=== PATIENT | female | born 1965 | race Caucasian/White ===

== ENCOUNTER 2017-10-16 21:38 | Emergency (ER) | payer OTHER ==
[~2017-10-16] VITALS: Ht 160 cm; Wt 108.9 kg
[2017-10-16 21:40] VITALS: BP 120/79
--- NOTE | 2017-10-16 21:43 | NUR ---
TO BED # 5 AMBULATORY, REPORT GIVEN TO THAI JEAN
--- NOTE | 2017-10-16 21:51 | NUR ---
52/F CAME IN ED, C/O LARGE AMOUNT VAGINAL BLEEDING WITHOUT CLOTS, X1 HR. PT DENIES VAGINAL OR ANY PAIN, DISCHARGE OR ITCHING. HX HYSTERECTOMY (2014). RX HCTZ FOR BLE SWELLING. NKA PT DENIES N/V/D; PT DENIES ANY FEVER, CP, SOB, OR COUGH AT THIS TIME; SKIN IS INTACT, PINK/WARM/DRY; AAOX4, PERRL, WITH EVEN AND STEADY GAIT; LUNGS CLEAR BL, BREATHING UNLABORED; HR EVEN AND REGULAR, BL PERIPHERAL PULSES PRESENT; BS ACTIVE X4, NO TENDERNESS TO PALPATION; PT STATES 0/10 PAIN AT THIS TIME; VSS; PATIENT POSITIONED FOR COMFORT; HOB ELEVATED; BEDRAILS UP X2; BED DOWN. ER MADE AWARE
--- NOTE | 2017-10-16 22:01 | NUR ---
Dr. Oconnor evaluating patient at bedside.
--- NOTE | 2017-10-16 22:09 | NUR ---
CHAPPERONED DR. LINDER FOR RECTAL EXAM
[2017-10-16 22:14] VITALS: BP 138/80
--- NOTE | 2017-10-16 22:15 | NUR ---
Patient discharged with v/s stable. Written and verbal after care instructions given and explained. Patient alert, oriented and verbalized understanding of instructions. Ambulatory with steady gait. All questions addressed prior to discharge. ID band removed. Patient advised to follow up with PMD. Rx of COLACE given. Patient educated on indication of medication including possible reaction and side effects. Opportunity to ask questions provided and answered.
== END 2017-10-16 22:15 | disposition home or self-care (01) ==
LOC: MED 21:38
DX: K64.9 Unspecified hemorrhoids (principal); J45.909 Unspecified asthma, uncomplicated; Z90.710 Acquired absence of both cervix and uterus; Z90.49 Acquired absence of other specified parts of digestive tract; F17.200 Nicotine dependence, unspecified, uncomplicated
CPT/HCPCS: 81002; 81025; 99283

== ENCOUNTER 2018-06-07 23:08 | Emergency (ER) | payer OTHER ==
[~2018-06-07] VITALS: Ht 160 cm; Wt 105.8 kg
[2018-06-07 23:12] VITALS: BP 141/77
--- NOTE | 2018-06-07 23:16 | NUR ---
TO ED 02 WITH STEADY GAIT
--- NOTE | 2018-06-07 23:20 | NUR ---
PT BIB FRIEND C/O RIGHT EAR PAIN. PT STATES SHE WAS SEEN AT AN URGENT CARE 5 DAYS AGO AND WAS PRESCRIBED ANTIBIOTICS, PT STATES TO BE UP TO DATE ON RX TX, BUT SYMPTOMS HAVE WORSEN AND NOW HAS A BUMP ON THE BACK OF HER EAR. PT STATES 9/10 PAIN, PT DESCRIBED PRESSURE, NON RADIATING. --FACIAL SWELLING TO LOWER RIGHT SIDE OF FACE; SMILE SYMETRICAL, REDNESS W/ MILD SWELLING BEHIND RIGHT EAR; NO DISCHARGE NOTED AT THIS TIME. CLEAR SPEECH. --DENIES N/V/D, FEVER, CHILL, CP, SOB OR LOC. AAOX4. SKIN WARM, DRY AND INTACT. LUNG SOUND CLEAR BL. BOWEL SOUNDS ACTIVE X4 QUAD. PMH: UTERINE CANCER (REMISSION), ASTHMA RX: DENIES
[2018-06-07 23:48] VITALS: BP 138/77
== END 2018-06-07 23:48 | disposition home or self-care (01) ==
LOC: MED 23:08
DX: H66.91 Otitis media, unspecified, right ear (principal); B97.89 Other viral agents as the cause of diseases classified elsewhere; J45.909 Unspecified asthma, uncomplicated; Z85.42 Personal history of malignant neoplasm of other parts of uterus
CPT/HCPCS: 99283

== ENCOUNTER 2019-03-17 12:51 | Emergency (ER) | payer OTHER ==
[~2019-03-17] VITALS: Ht 160 cm; Wt 108.9 kg
[2019-03-17 13:05] VITALS: BP 133/60
--- NOTE | 2019-03-17 13:05 | NUR ---
TO BED # 01 AMBULATORY
--- NOTE | 2019-03-17 13:20 | NUR ---
BIB FAMILY C/O LOWER BACK PAIN,FOR 2 WEEKS, NO BM FOR 2 DAYS.PATIENT STATES PAIN OF 10/10 AT THIS TIME. PATIENT POSITIONED FOR COMFORT; HOB ELEVATED; BEDRAILS UP X1; BED DOWN. ER MD MADE AWARE OF PT STATUS.
[2019-03-17] MEDS ORDERED: KETOROLAC 30 MG/ML VIAL IM ONE (13:50)
--- NOTE | 2019-03-17 14:11 | NUR ---
PT TAKEN TO CT
[2019-03-17 15:05] LABS: APPEARANCE,URINE CLEAR (CLEAR); BILIRUBIN,URINE NEGATIVE (NEGATIVE); BLOOD, URINE NEGATIVE (NEGATIVE); COLOR,URINE YELLOW (YELLOW); LEUKOCYTE ESTERASE ,URINE NEGATIVE (NEGATIVE); NITRITE, URINE NEGATIVE (NEGATIVE); PH,URINE 6.5 (5.0-9.0); UGLUCOSE NEGATIVE (NEGATIVE)
[2019-03-17] MEDS ORDERED: LACTULOSE 20 GM/30 ML UDC PO ONE (15:20)
--- NOTE | 2019-03-17 15:43 | NUR ---
PAIN 5/10, NADR AT THIS TIME
[2019-03-17 15:45] VITALS: BP 121/65
--- NOTE | 2019-03-17 15:45 | NUR ---
Patient discharged with v/s stable. Written and verbal after care instructions given and explained REGARDING CONSTIPATION. Patient alert, oriented and verbalized understanding of instructions. Ambulatory with steady gait. All questions addressed prior to discharge. ID band removed. Patient advised to follow up with PMD. Rx of MIRALAX given. Patient educated on indication of medication including possible reaction and side effects. Opportunity to ask questions provided and answered.
== END 2019-03-17 15:45 | disposition home or self-care (01) ==
LOC: MED 12:51
DX: M54.89 Other dorsalgia (principal); K59.00 Constipation, unspecified; J45.909 Unspecified asthma, uncomplicated; F17.210 Nicotine dependence, cigarettes, uncomplicated; Z90.710 Acquired absence of both cervix and uterus; Z85.42 Personal history of malignant neoplasm of other parts of uterus; Z72.0 Tobacco use
CPT/HCPCS: 74176; 81003; 96372; 99284; J1885

== ENCOUNTER 2021-02-18 17:04 | Emergency (ER) | payer OTHER ==
[~2021-02-18] VITALS: Ht 160 cm; Wt 108.9 kg
[2021-02-18 17:06] VITALS: BP_SYST 147; BP_SYST 86; BP_DIAS 86
[2021-02-18] MEDS ORDERED: TOMOMETER 1 DEV DEV MC ONE (18:32)
[2021-02-18 18:34] LABS: BASOPHILS % (AUTO) 0.7 % (0.0-2.0); EOSINOPHILS # (AUTO) 0.2 K/uL (0-0.4); EOSINOPHILS % (AUTO) 3.9 % (0.0-4.0); HEMATOCRIT 38.8 % (36-48); HEMOGLOBIN 13.3 g/dL (12.0-16.0); LYMPHOCYTES # (AUTO) 1.1 K/uL (2.5-16.5); LYMPHOCYTES % (AUTO) 24.4 % (20.5-51.1); MEAN CORPUSCULAR HEMOGLOBIN 31 pg (27-31); MEAN CORPUSCULAR HGB CONC 34 g/dL (33-37); MEAN CORPUSCULAR VOLUME 91.7 fL (80-94); MONOCYTES # (AUTO) 0.4 K/uL (0.8-1.0); MONOCYTES % (AUTO) 9.1 % (1.7-9.3); NEUTROPHILS # (AUTO) 2.8 K/uL (1.8-7.7); NEUTROPHILS % (AUTO) 61.9 % (42.2-75.2); PLATELET COUNT (AUTO) 217 K/uL (140-450); RED BLOOD CELL COUNT(AUTO) 4.22 MIL/uL (4.20-5.40); RED CELL DISTRIBUTION WIDTH 13.4 % (11.6-13.7); WHITE BLOOD COUNT (AUTO) 4.6 K/uL (4.8-10.8)
[2021-02-18] MEDS ORDERED: TETRACAINE HCL/PF 0.5% OPTH 4 ML BTL ONE (18:34)
[2021-02-18 18:49] LABS: PROTHROMBIN TIME 10.3 secs (10.8-13.4)
[2021-02-18] MEDS: TETRACAINE HCL/PF 0.5% OPTH 4 ML BTL OP ONE (19:15)
[2021-02-18 21:11] VITALS: BP 126/56
== END 2021-02-18 21:11 | disposition home or self-care (01) ==
LOC: MED 17:04
DX: H54.62 Unqualified visual loss, left eye, normal vision right eye (principal); I10 Essential (primary) hypertension; F17.210 Nicotine dependence, cigarettes, uncomplicated; Z71.6 Tobacco abuse counseling; J45.909 Unspecified asthma, uncomplicated; Z85.42 Personal history of malignant neoplasm of other parts of uterus; Z90.710 Acquired absence of both cervix and uterus; Z90.49 Acquired absence of other specified parts of digestive tract; Z98.890 Other specified postprocedural states
CPT/HCPCS: 36415; 70450; 85025; 85610; 85651; 85730; 86140; 93005; 93880; 99291; Q0092

== ENCOUNTER 2024-01-21 02:50 | Emergency (ER) | payer MEDICAID, OTHER ==
[~2024-01-21] VITALS: Ht 160 cm; Wt 117.9 kg
[2024-01-21 02:58] VITALS: BP 150/73; PULSE 76; RESP 18; TEMP 98.3; O2SAT 98
[2024-01-21] MEDS: KETOROLAC 60 MG/2 ML VIAL IM ONE (03:21)
[2024-01-21] MEDS ORDERED: IBUP-2213 PO (03:26)
[2024-01-21] MEDS ORDERED: ACET-8905 PO (03:26)
[2024-01-21 03:36] VITALS: BP 136/70; PULSE 70; RESP 18; TEMP 98.3; O2SAT 98
== END 2024-01-21 03:36 | disposition home or self-care (01) ==
LOC: MED 02:50
DX: S52.502A Unspecified fracture of the lower end of left radius, initial encounter for closed fracture (principal); R03.0 Elevated blood-pressure reading, without diagnosis of hypertension; J45.909 Unspecified asthma, uncomplicated; F17.200 Nicotine dependence, unspecified, uncomplicated; Z85.42 Personal history of malignant neoplasm of other parts of uterus; Z90.710 Acquired absence of both cervix and uterus; W19.XXXA Unspecified fall, initial encounter; Y93.89 Activity, other specified; Y92.89 Other specified places as the place of occurrence of the external cause; Y99.8 Other external cause status
CPT/HCPCS: 29105; 73110; 96372; 99283; J1885; Q0092